=== PATIENT | male | born 1940 | race Caucasian/White ===

== ENCOUNTER 2024-03-18 16:21 | Emergency (ER) | payer MEDICARE, SELFPAY ==
[2024-03-18 16:30] VITALS: BP 160/78; PULSE 75; TEMP 37.1; O2SAT 96; BMI 27.1
--- NOTE | 2024-03-18 16:38 | CT_ITS ---
The [address] [address] Patient Name: DILSHAD YORK MRN: [id number] date: 1940 Sex: M Assigned Patient Location: ER Current Patient Location: .MAIN Accession/Order Number: [id number] Exam Date: 03/18/2024 16:47 Report Date: 03/18/2024 17:46 At the request of: JONATHON KERR Procedure: CT head/brain wo con CT SCAN OF THE HEAD WITHOUT CONTRAST, 03/18/2024 4:47 PM EDT: COMPARISON: CT scan of the head, 01/14/2023 CLINICAL HISTORY: fall Struck head on concrete and has a headache. Patient is on aspirin. Patient fell 1-1/2 hours ago walking into a store. His shoe was coming off, loose, causing him to trip. TECHNIQUE: 3 mm axial images performed through the head without contrast. 3 mm sagittal and coronal MPR reconstructions performed. Dose reduction techniques were achieved by using automated exposure control and/or adjustment of mA and/or kV according to patient size and/or use of iterative reconstruction technique. FINDINGS: Age-related cerebral and cerebellar atrophy with associated ventricular prominence. Nonspecific periventricular white matter low attenuation, likely a sequela of small vessel disease. No acute hemorrhage, mass effect, or midline shift. Visualized paranasal sinuses, mastoid air cells and bony structures are unremarkable. CT/CT head/brain wo con IMPRESSION: 1. No acute intracranial abnormality identified. 2. Age-related atrophy with associated ventricular prominence and minimal periventricular white matter small vessel disease. Electronically authenticated by: Dany MEEHAN Date: 03/18/2024 17:46
--- NOTE | 2024-03-18 16:39 | ED_ITS ---
HPI HPI - General Adult General Chief complaint: Head Injury Stated complaint: FALL Time Seen by Provider: 03/18/24 16:25 Source: patient Mode of arrival: walk-in History of Present Illness HPI narrative: Patient is an 83-year-old male who presents to the emergency department for right shoulder pain after a fall. He states he tripped on his shoes and fell forward on a curb hitting his right knee, right shoulder and then hitting his head. He had no loss of consciousness or visual changes. No vomiting. He has been able to ambulate since the incident. He denies any pain in the neck or back. He reports most of his pain in the right shoulder. No medications prior to arrival, he takes a baby aspirin daily, no other anticoagulation. Related Data Allergies Allergy/AdvReac Type Severity Reaction Status Date / Time No Known Drug Allergies Allergy Verified 03/18/24 16:28 Opioid HPI Opioid Management Most Recent Opioid Data: Last Pain Scale 4 03/18/24 17:10 Review of Systems ROS Constitutional Denies: fever or chills Eyes Denies: change in vision Respiratory Denies: shortness of breath Gastrointestinal Denies: nausea or vomiting Musculoskeletal Reports: extremity pain and joint pain; Denies: back pain or neck pain Integumentary/Breast Denies: rash Neurological Denies: headache, numbness in extremities, weakness in extremities or dizziness Hematologic/Lymphatic Denies: easy bruising or easy bleeding Exam Narrative Exam Narrative: Gen.: Awake, alert, in no distress Head: Normocephalic, atraumatic ENT: Moist mucous membranes, Faint abrasion noted to the right nasal bridge. No hematoma, ecchymosis or dental injury/nasal injury noted.C-spine nontender with full range of motion Respiratory: No respiratory distress Extremities: Diffuse mild tenderness of the right glenohumeral joint with no obvious deformity or sulcus sign, patient noted to be raising his right arm up above his head without difficulty. No bony tenderness of the right elbow, right forearm. Normal is project manager strength in the right hand. No swelling, ecchymosis or abrasions noted of the right knee. Diffuse tenderness Of the right knee, right tibia and right ankle with no obvious deformity. Normal flexion and extension at the right knee. Psych: Normal mood and affect Neuro: No focal neuro deficit Skin: Warm, dry, intact Constitutional Vital Signs, click to edit/add: Last Vital Signs Temp 98.7 F 03/18/24 16:30 Pulse 75 03/18/24 16:30 Resp 16 03/18/24 16:30 BP 160/78 H 03/18/24 16:30 Pulse Ox 96 03/18/24 16:30 O2 Del Method Room Air 03/18/24 16:30 Course Vital Signs Vital signs: Vital Signs Temperature 98.7 F 03/18/24 16:30 Pulse Rate 75 03/18/24 16:30 Respiratory Rate 16 03/18/24 16:30 Blood Pressure 160/78 H 03/18/24 16:30 Pulse Oximetry 96 03/18/24 16:30 Oxygen Delivery Method Room Air 03/18/24 16:30 Temperature 98.7 F 03/18/24 16:30 Pulse Rate 75 03/18/24 16:30 Respiratory Rate 16 03/18/24 16:30 Blood Pressure 160/78 H 03/18/24 16:30 Pulse Oximetry 96 03/18/24 16:30 Oxygen Delivery Method Room Air 03/18/24 16:30 Medical Decision Making MDM Narrative Medical decision making narrative: And for CT of the brain, x-rays of the right shoulder, right knee and right tib- fib. No abnormalities noted, there is a small joint effusion on the right knee x-ray. Patient is discharged home to follow-up with PCP. Return to the ER if symptoms change or worsen. He is eager for discharge and moving all extremities at discharge. Medical Records Medical records reviewed: Yes I reviewed the patient's medical records Imaging Data CT scan - head: Attestation: I have reviewed the pertinent imaging results. Radiologist's impression: ITS Impressions Head CT 03/18/24 16:38 IMPRESSION: 1. No acute intracranial abnormality identified. 2. Age-related atrophy with associated ventricular prominence and minimal periventricular white matter small vessel disease. Electronically authenticated by: Dany MEEHAN Date: 03/18/2024 17:46 Knee X-Ray 03/18/24 17:03 IMPRESSION: No fracture or suspicious bone lesion. Small joint effusion. Tricompartment DJD. Electronically authenticated by: JENNIFER SMITH Date: 03/18/2024 17:35 Shoulder X-Ray 03/18/24 17:03 IMPRESSION: Negative for fracture or dislocation. Minor spurring Electronically authenticated by: JENNIFER SMITH Date: 03/18/2024 17:39 Tibia/Fibula X-Ray 03/18/24 17:03 IMPRESSION: No acute fracture of the right tibia and fibula. Electronically authenticated by: JESUS MANUEL WATTERS Date: 03/18/2024 17:43 Discharge Plan Discharge Stand Alone Forms: Portal Instructions Chief Complaint: Head Injury Clinical Impression: Closed head injury, Contusion of right knee, Contusion of right shoulder Patient Disposition: Home, Self-Care Time of Disposition Decision: 17:48 Condition: Good Print Language: Indonesian Instructions: Head Injury (ED), Contusion in Adults (ED) Referrals: Physician,Non-Staff, MD [Primary Care Provider] - 1 week
--- NOTE | 2024-03-18 17:03 | XR_ITS ---
The [address] [address] Patient Name: DILSHAD YORK MRN: [id number] date: 1940 Sex: M Assigned Patient Location: ER Current Patient Location: ER Accession/Order Number: [id number] Exam Date: 03/18/2024 16:50 Report Date: 03/18/2024 17:43 At the request of: JONATHON KERR Procedure: XR tibia fibula RT 2V EXAM: XR tibia fibula RT 2V HISTORY: fall COMPARISON: None. TECHNIQUE: 2 views of the right tibia fibula FINDINGS: No acute fracture seen. Approximately 1 cm benign bony protuberance is seen about the medial aspect of the proximal tibia. The soft tissues appear unremarkable. XR/XR tibia fibula RT 2V IMPRESSION: No acute fracture of the right tibia and fibula. Electronically authenticated by: JESUS MANUEL WATTERS Date: 03/18/2024 17:43
--- NOTE | 2024-03-18 17:03 | XR_ITS ---
The [address] [address] Patient Name: DILSHAD YORK MRN: [id number] date: 1940 Sex: M Assigned Patient Location: ER Current Patient Location: ER Accession/Order Number: [id number] Exam Date: 03/18/2024 16:50 Report Date: 03/18/2024 17:35 At the request of: JONATHON KERR Procedure: XR knee RT 3V EXAM: XR knee RT 3V HISTORY: fall COMPARISON: None. TECHNIQUE: AP, oblique, lateral x-ray right knee. FINDINGS: No fracture or suspicious bone lesion. Small joint effusion. High compartment degenerative joint disease with joint space narrowing spurring. Mild to moderate narrowing mediofemoral tibial joint, lateral joint normal with peripheral osteophytes. Patellofemoral joint narrowing and osteophytes off the patella and distal femur.. Small exostosis below the knee medial cortex.. Vascular soft tissue calcification XR/XR knee RT 3V IMPRESSION: No fracture or suspicious bone lesion. Small joint effusion. Tricompartment DJD. Electronically authenticated by: JENNIFER SMITH Date: 03/18/2024 17:35
--- NOTE | 2024-03-18 17:03 | XR_ITS ---
The [address] [address] Patient Name: DILSHAD YORK MRN: [id number] date: 1940 Sex: M Assigned Patient Location: ER Current Patient Location: ER Accession/Order Number: [id number] Exam Date: 03/18/2024 16:50 Report Date: 03/18/2024 17:39 At the request of: JONATHON KERR Procedure: XR shoulder RT min 2V EXAM: XR shoulder RT min 2V HISTORY: Fall COMPARISON: None. TECHNIQUE: Upright AP external rotation, internal rotation, Y-view right shoulder FINDINGS: No fracture or dislocation. No focal bone lesion. Minor spurring. Normal glenohumeral joint. No soft tissue calcification. Visualized right ribs markable. Right lung clear except for small granuloma. XR/XR shoulder RT min 2V IMPRESSION: Negative for fracture or dislocation. Minor spurring Electronically authenticated by: JENNIFER SMITH Date: 03/18/2024 17:39
[2024-03-18 17:58] VITALS: BP 151/79; PULSE 70; O2SAT 96
== END 2024-03-18 17:58 | disposition home or self-care (01) ==
PROVIDERS: Emergency Provider Emergency Medicine
DX: S40.011A Contusion of right shoulder, initial encounter (principal); S80.01XA Contusion of right knee, initial encounter; S09.8XXA Other specified injuries of head, initial encounter; W01.198A Fall on same level from slipping, tripping and stumbling with subsequent striking against other object, initial encounter; Z79.82 Long term (current) use of aspirin
CPT/HCPCS: 70450; 73030; 73562; 73590; 99284

== ENCOUNTER 2024-03-19 10:30 | Emergency (ER) | payer MEDICARE, SELFPAY ==
[2024-03-19] VITALS (17 sets, daily range): BP systolic 147–184; BP diastolic 69–82; PULSE 61–75; TEMP 37.1; O2SAT 94–98; BMI 27.1
--- NOTE | 2024-03-19 10:44 | ECG_ITS ---
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
--- NOTE | 2024-03-19 10:45 | XR_ITS ---
The [address] [address] Patient Name: DILSHAD YORK MRN: [id number] date: 1940 Sex: M Assigned Patient Location: ER Current Patient Location: ER Accession/Order Number: [id number] Exam Date: 03/19/2024 10:50 Report Date: 03/19/2024 11:06 At the request of: KRISTEL SIDHU Procedure: XR chest 1V EXAMINATION: XR chest 1V HISTORY: Right-sided chest pain COMPARISON: 01/26/2017 TECHNIQUE: Portable FINDINGS: LUNGS: No significant pulmonary parenchymal abnormalities. Stable right basilar nodules, size and density suggests granulomas VASCULATURE: No increased pulmonary vasculature. PLEURA: No pneumothorax, effusion, or pleural thickening. CARDIAC: No cardiomegaly or cardiac silhouette abnormality. MEDIASTINUM: No visible mass or adenopathy. Aortic atherosclerosis BONES: No fracture or visible bone lesion. OTHER: Negative. XR/XR chest 1V IMPRESSION: No acute cardiopulmonary process Electronically authenticated by: GABY SINGH Date: 03/19/2024 11:06
--- NOTE | 2024-03-19 10:45 | ED.CHESTPAI1 ---
HPI - Chest Pain General Chief Complaint: Chest Pain Stated Complaint: CHEST PAIN Time Seen by Provider: 03/19/24 10:33 Source: patient Mode of arrival: Wheelchair Limitations: no limitations History of Present Illness HPI narrative: 83-year-old male presents to the emergency department for chest pain. Its on the right side and it is sharp and it started 30 minutes ago while he was driving his car. No trauma. He had however fallen yesterday and was seen here and had multiple studies performed. No fever or back pain and the pain does not radiate. Related Data Allergies Allergy/AdvReac Type Severity Reaction Status Date / Time No Known Drug Allergies Allergy Verified 03/18/24 16:28 Review of Systems ROS Narrative A ten point review of systems is negative except as noted above. Exam Narrative Exam Narrative: Nurses note and vital signs reviewed and patient is not hypoxic. General: The patient appears well and in no apparent distress. Skin: Warm, dry, no pallor noted. There is no rash noted. Head: Normocephalic, atraumatic Eye: Normal conjunctiva, no drainage Ears, Nose, Mouth, and Throat: oral mucosa is moist. Nares patent. Cardiovascular: Regular Rate and Rhythm, chest wall is tender on the right side and this reproduces his pain. There is no crepitus bruise rash or abrasion. Respiratory: Patient is in no distress, no accessory muscle use, lungs are clear to auscultation, no wheezing, rales or rhonchi Back: non-tender GI: Soft and nontender Musculoskeletal: The patient has no evidence of calf tenderness, no pitting edema, symmetrical pulses noted bilaterally Neurological: A&O, normal speech Psychiatric: Cooperative Constitutional Vital Signs, click to edit/add: Last Vital Signs Temp 98.8 F 03/19/24 10:36 Pulse 62 03/19/24 12:30 Resp 13 03/19/24 12:30 BP 147/77 H 03/19/24 12:16 Pulse Ox 98 03/19/24 12:30 O2 Del Method Room Air 03/19/24 10:36 Course Vital Signs Vital signs: Vital Signs Temperature 98.8 F 03/19/24 10:36 Pulse Rate 70 03/19/24 10:36 Respiratory Rate 20 03/19/24 10:36 Blood Pressure 182/82 H 03/19/24 10:36 Pulse Oximetry 98 03/19/24 10:36 Oxygen Delivery Method Room Air 03/19/24 10:36 Temperature 98.8 F 03/19/24 10:36 Pulse Rate 62 03/19/24 12:30 Respiratory Rate 13 03/19/24 12:30 Blood Pressure 147/77 H 03/19/24 12:16 Pulse Oximetry 98 03/19/24 12:30 Oxygen Delivery Method Room Air 03/19/24 10:36 MDM - Chest Pain MDM Narrative Medical decision making narrative: Workup is negative. 2 sets of troponin are negative. His pain is reproducible and he is being discharged home. Treatment diagnosis and follow-up were discussed with the patient. Differential Diagnosis Differential diagnosis: Likely pneumothorax, atypical chest pain, st elevation myocardial infarction, costochondritis and chest pain Lab Data Attestation: I reviewed the patient's lab results. Labs: Lab Results 03/19/24 03/19/24 Range/Units 10:50 11:57 WBC 7.0 (4.0-11.0) 10^3/uL RBC 4.68 L (4.70-6.10) 10^6/uL Hgb 13.5 L (14.0-18.0) g/dL Hct 41.3 L (42.0-54.0) % MCV 88.2 (80.0-94.0) fL MCH 28.8 (25.9-34.0) pg MCHC 32.7 (29.9-35.2) g/dL RDW 14.0 (11.0-15.0) % Plt Count 190 (150-450) 10^3/uL MPV 9.3 L (9.5-13.5) fL Neut % (Auto) 58.9 (43.0-75.0) % Lymph % (Auto) 30.6 (20.5-60.0) % [place] % (Auto) 7.7 (1.7-12.0) % Eos % (Auto) 1.9 (0.9-7.0) % Baso % (Auto) 0.6 (0.2-2.0) % Neut # (Auto) 4.1 (1.4-6.5) 10^3/uL Lymph # (Auto) 2.2 (1.2-3.8) 10^3/uL [place] # (Auto) 0.5 (0.3-0.8) 10^3/uL Eos # (Auto) 0.1 (0.0-0.7) 10^3/uL Baso # (Auto) 0.0 (0.0-0.1) 10^3/uL Abs Immat Gran (auto) 0.02 (0.00-0.03) 10^3/uL Imm/Tot Granulo (auto) 0.3 (0.0-0.5) % Sodium 142 (136-145) mmol/L Potassium 4.2 (3.5-5.1) mmol/L Chloride 108 H (98-107) mmol/L Carbon Dioxide 25.2 (21.0-32.0) mmol/L Anion Gap 13.0 BUN 23.0 H (7.0-18.0) mg/dL Creatinine 0.92 (0.70-1.30) mg/dL Est GFR ( Amer) >60 (>=60) Est GFR (Non-Af Amer) >60 (>=60) BUN/Creatinine Ratio 25.0 Glucose 139 H (74-106) mg/dL Calcium 8.6 (8.5-10.1) mg/dL Troponin I High Sens 11.7 10.9 (4.0-76.1) pg/mL Imaging Data Chest x-ray: Radiologist's impression: ITS Impressions Chest X-Ray 03/19/24 10:45 IMPRESSION: No acute cardiopulmonary process Electronically authenticated by: GABY SINGH Date: 03/19/2024 11:06 ECG Data Attestation: I personally reviewed and interpreted this ECG as follows: (EKG on my interpretation shows normal sinus rhythm with no acute change and rate of 65) Heart Score History: Slightly/Non-Suspicious ECG: Normal Age: >65 years Risk Factors: 1 or 2 Risk Factors Troponin: <Normal Limit Total Heart Score Recommendations & Risks:: 3 Discharge Plan Discharge Stand Alone Forms: Portal Instructions Chief Complaint: Chest Pain Clinical Impression: Acute chest wall pain Patient Disposition: Home, Self-Care Time of Disposition Decision: 12:35 Condition: Good Mode of Transportation: Private Vehicle Print Language: Luxembourgish Instructions: Chest Wall Pain (ED) Referrals: Physician,Non-Staff, MD [Primary Care Provider] - 1 week
[2024-03-19 10:59] LABS: Basophils Percent Auto 0.6 % (0.2-2.0); Eosinophils Absolute Auto 0.1 10^3/uL (0.0-0.7); Eosinophils Percent Auto 1.9 % (0.9-7.0); Hematocrit 41.3 % (42.0-54.0); Hemoglobin 13.5 g/dL (14.0-18.0); Immature Granulocytes Abs Auto 0.02 10^3/uL (0.00-0.03); Immature Granulocytes Pct Auto 0.3 % (0.0-0.5); Lymphocytes Absolute Auto 2.2 10^3/uL (1.2-3.8); Lymphocytes Percent Auto 30.6 % (20.5-60.0); Mean Corpuscular HGB Conc 32.7 g/dL (29.9-35.2); Mean Corpuscular Hemoglobin 28.8 pg (25.9-34.0); Mean Corpuscular Volume 88.2 fL (80.0-94.0); Mean Platelet Volume 9.3 fL (9.5-13.5); Monocytes Absolute Auto 0.5 10^3/uL (0.3-0.8); Monocytes Percent Auto 7.7 % (1.7-12.0); Neutrophils Absolute Auto 4.1 10^3/uL (1.4-6.5); Neutrophils Percent Auto 58.9 % (43.0-75.0); Platelet Count 190 10^3/uL (150-450); Red Blood Count 4.68 10^6/uL (4.70-6.10)
[2024-03-19 11:09] LABS: Calcium 8.6 mg/dL (8.5-10.1); Carbon Dioxide 25.2 mmol/L (21.0-32.0); Chloride 108 mmol/L (98-107); Estimated GFR (African America >60 (>=60); Estimated GFR (Non-African Ame >60 (>=60); Glucose 139 mg/dL (74-106); Potassium 4.2 mmol/L (3.5-5.1); Sodium 142 mmol/L (136-145)
[2024-03-19 11:18] LABS: Troponin I High Sensitivity 11.7 pg/mL (4.0-76.1)
[2024-03-19] MEDS: KETOROLAC TROMETHAMINE 30 MG/ML VIAL IVP (12:12)
[2024-03-19 12:23] LABS: Troponin I High Sensitivity 10.9 pg/mL (4.0-76.1)
== END 2024-03-19 12:51 | disposition home or self-care (01) ==
PROVIDERS: Emergency Provider Emergency Medicine
DX: R07.89 Other chest pain (principal)
CPT/HCPCS: 36415; 71045; 80048; 84484; 85025; 93005; 96374; 99285